=== PATIENT | female | born 1995 | race Two or more races ===

== ENCOUNTER 2024-03-07 01:52 | Inpatient (IN) | payer MEDICAID, OTHER ==
[~2024-03-07] VITALS: Ht 157.5 cm; Wt 75.6 kg
[2024-03-07 02:51] LABS: Urine Bacteria None Seen /hpf (None Seen)
[2024-03-07] MEDS: ONDANSETRON HCL 4 MG/2 ML VIAL IV ONE (02:51)
[2024-03-07] MEDS: FAMOTIDINE (10MG/ML) 2ML VL IV ONE (02:51)
[2024-03-07] MEDS: MORPHINE SULFATE 4 MG/ML SYR/VIAL IV ONE (02:52)
[2024-03-07] MEDS: SODIUM CHLORIDE 0.9% 1,000 ML IV ONE (02:52)
[2024-03-07 02:58] LABS: Basophils # (auto) 0 10 ^3/uL (0-0.2); Basophils % (auto) 0.4 % (0.0-2.0); Eosinophils # (auto) 0.1 10 ^3/uL (0-0.8); Eosinophils % (auto) 0.6 % (0.0-7.0); Hematocrit 37.1 % (36.0-46.0); Hemoglobin 12.4 g/dL (12.2-16.2); Lymphocytes # (auto) 1.8 10 ^3/uL (0.4-5.4); Lymphocytes % (auto) 15.9 % (10.0-50.0); Mean Corpuscular Hemoglobin 31.5 pg (28.0-32.0); Mean Corpuscular Hgb Conc. 33.4 g/dL (32.0-36.0); Mean Corpuscular Volume 94.1 fL (80.0-100.0); Monocytes # (auto) 0.5 10 ^3/uL (0-1.3); Monocytes % (auto) 4.3 % (0.0-12.0); Neutrophils # (auto) 8.9 10 ^3/uL (1.6-8.6); Neutrophils % (auto) 78.8 % (37.0-80.0); Platelet Count (auto) 273 10^3/uL (140-450); Red Blood Cells 3.95 10^6/uL (4.0-5.20); Red Cell Distribution Width 14.4 % (11.8-14.3); White Blood Cell 11.3 10^3/uL (4.4-10.8)
[2024-03-07 03:15] LABS: Alanine Aminotransferase 23 U/L (7-40); Alkaline Phosphatase 90 U/L (46-116); Anion Gap 8 (5-15); BUN/Creatinine Ratio 7.4 (10.0-20.0); Blood Urea Nitrogen 7 mg/dL (9-23); Calcium 9.7 mg/dL (8.7-10.4); Carbon Dioxide 25 mmol/L (20-30); Chloride 106 mmol/L (98-107); Glucose 143 mg/dL (74-106); Lipase 46 U/L (12-53); Sodium 139 mmol/L (136-145)
[2024-03-07 03:16] LABS: Albumin 4.3 g/dL (3.2-4.8); Aspartate Aminotransferase 14 U/L (13-40); Bilirubin, Total 1.3 mg/dL (0.2-1.0); Total Protein 7.5 g/dL (5.7-8.2)
[2024-03-07 03:34] LABS: Urine Amorphous Crystal MOD /hpf (None Seen); Urine Blood Negative /uL (Negative); Urine Clarity Ex.Turbid (Clear); Urine Color Colorless (Yellow); Urine Protein, UAD TRACE (Negative); Urine Specific Gravity 1.021 (1.001-1.035); Urine Urobilinogen Normal (Negative); Urine WBC 29 /hpf (0 - 5); Urine WBC Clumps PRESENT /hpf (None Seen); Urine pH 8.5 (5.0-9.0)
[2024-03-07] MEDS: cefTRIAXone 1GM/50ML D5W 50 ML IV ONE (04:43)
[2024-03-07] MEDS: IOHEXOL 300 MG/ML 100ML BOTTLE IJ ONE (06:16)
[2024-03-07] MEDS ORDERED: ONDANSETRON HCL 4 MG/2 ML VIAL IV PRN ×2 (06:30→15:15)
[2024-03-07] MEDS ORDERED: MORPHINE SULFATE INJ 2 MG/ml SYRG IV PRN ×3 (06:30→15:15)
[2024-03-07] MEDS: metroNIDAZOLE 500MG/100ML 100 ML IV ONE (06:37)
[2024-03-07] MEDS: SODIUM CHLORIDE 0.9% 1,000 ML IV SCH (06:37)
[2024-03-07 06:50] VITALS: O2SAT 98
[2024-03-07 07:50] LABS: INR 1.02 (0.9-1.15); Partial Thromboplastin Time 24.2 SEC (24.5-34.5); Prothrombin Time 10.8 sec (9.3-11.8)
[2024-03-07] MEDS: ceFAZolin 2 GM/D5W50ml 50 ML IV ONE (08:50)
[2024-03-07] MEDS: cefTRIAXone 1GM/50ML D5W 50 ML IV SCH (09:44)
[2024-03-07] MEDS: LIDOCAINE W/ EPINEPHRINE 1% 20ML VIAL ONE (13:25)
[2024-03-07] MEDS: BUPIVACAINE 0.25% INJ 50ML VIAL ONE (13:25)
[2024-03-07] MEDS ORDERED: HYDROmorphone HCL 2 MG/ML VL/or syr IV PRN (13:30)
[2024-03-07] MEDS ORDERED: fentaNYL CITRATE 100 MCG/2 ML VL IV PRN (13:30)
[2024-03-07] MEDS ORDERED: fentaNYL CITRATE 100 MCG/2 ML VL ONE (13:36)
[2024-03-07] MEDS ORDERED: MIDAZOLAM HCL 2MG/2ML 2ml VIAL (1mg/ml) ONE (13:36)
[2024-03-07] MEDS ORDERED: KETAMINE 50mg/ML 1ml syringe ONE (13:36)
[2024-03-07] MEDS ORDERED: NEOSTIGMINE 1 MG/ML INJ (10mg/10ML VIAL) ONE (13:37)
[2024-03-07] MEDS ORDERED: ONDANSETRON HCL 4 MG/2 ML VIAL ONE (13:37)
[2024-03-07] MEDS ORDERED: PROPOFOL 10 MG/ML 20 ML IV ONE (13:37)
[2024-03-07] MEDS ORDERED: LIDOCAINE 1% INJ PF 5ML AMP ONE (13:37)
[2024-03-07] MEDS ORDERED: GLYCOPYRROLATE 0.2 MG/ML 1ML VIAL ONE (13:37)
[2024-03-07] MEDS ORDERED: MEPERIDINE HCL (25 MG/ML) 1ML VIAL ONE (13:37)
[2024-03-07] MEDS ORDERED: SODIUM CHLORIDE LOCK 10 ML ONE (13:37)
[2024-03-07] MEDS ORDERED: ROCURONIUM 10MG/ML 10ML VIAL IV ONE (13:37)
[2024-03-07] MEDS: POVIDONE IODINE 10 % TOPICAL OINT 30GM TOP ONE (14:18)
[2024-03-07] MEDS: HYDROmorphone HCL 2 MG/ML VL/or syr IV ONE (14:30)
[2024-03-07 14:40] VITALS: RESP 15; O2SAT 97
[2024-03-07] MEDS: D5W/SOD CHL 0.45%/KCL 20MEQ 1,000 ML IV SCH (15:00)
[2024-03-07] MEDS ORDERED: IPRATROPIUM BROM 0.5 MG/2.5ML INH SOL NEB PRN (15:15)
[2024-03-07] MEDS ORDERED: ACETAMINOPHEN 500 MG TAB PO PRN (15:15)
[2024-03-07] MEDS ORDERED: ALBUTEROL SULF 2.5 MG/0.5ML(0.5%) NEB SOLN NEB PRN (15:15)
[2024-03-07] MEDS ORDERED: DOCUSATE SOD 100 MG CAP PO PRN (15:15)
[2024-03-07] MEDS: HYDROmorphone HCL 2 MG/ML VL/or syr IV PRN (15:36)
[2024-03-07 15:39] VITALS: BP 121/83; PULSE 91; RESP 18; TEMP 98.1; O2SAT 100
[2024-03-07] MEDS: metroNIDAZOLE 500MG/100ML 100 ML IV SCH (21:21)
[2024-03-07 21:45] VITALS: PULSE 106; RESP 17; O2SAT 92
[2024-03-07] MEDS: HYDROcodone-ACET 5/325MG TAB PO PRN (22:20)
[2024-03-08] VITALS (9 sets, daily range): BP systolic 109–131; BP diastolic 54–81; PULSE 57–120; RESP 16–20; TEMP 97.8–98.8; O2SAT 90–96
[2024-03-08 07:21] LABS: Basophils # (auto) 0 10 ^3/uL (0-0.2); Basophils % (auto) 0.5 % (0.0-2.0); Eosinophils # (auto) 0 10 ^3/uL (0-0.8); Eosinophils % (auto) 0.5 % (0.0-7.0); Hematocrit 35.4 % (36.0-46.0); Hemoglobin 11.9 g/dL (12.2-16.2); Lymphocytes # (auto) 2.2 10 ^3/uL (0.4-5.4); Lymphocytes % (auto) 22.4 % (10.0-50.0); Mean Corpuscular Hgb Conc. 33.7 g/dL (32.0-36.0); Mean Corpuscular Volume 94.9 fL (80.0-100.0); Monocytes # (auto) 0.7 10 ^3/uL (0-1.3); Monocytes % (auto) 7.4 % (0.0-12.0); Neutrophils # (auto) 6.9 10 ^3/uL (1.6-8.6); Neutrophils % (auto) 69.2 % (37.0-80.0); Platelet Count (auto) 241 10^3/uL (140-450); Red Blood Cells 3.73 10^6/uL (4.0-5.20); Red Cell Distribution Width 14.7 % (11.8-14.3); White Blood Cell 9.9 10^3/uL (4.4-10.8)
[2024-03-08 07:44] LABS: Alanine Aminotransferase 15 U/L (7-40); Alkaline Phosphatase 84 U/L (46-116); Anion Gap 5 (5-15); Calcium 8.9 mg/dL (8.7-10.4); Carbon Dioxide 28 mmol/L (20-30); Chloride 108 mmol/L (98-107); Glucose 103 mg/dL (74-106); Potassium 3.6 mmol/L (3.5-5.1); Sodium 141 mmol/L (136-145)
[2024-03-08 07:45] LABS: Albumin 3.7 g/dL (3.2-4.8); Aspartate Aminotransferase 13 U/L (13-40); Bilirubin, Total 1.8 mg/dL (0.2-1.0); Total Protein 6.3 g/dL (5.7-8.2)
[2024-03-08 07:46] LABS: BUN/Creatinine Ratio 6.2 (10.0-20.0); Blood Urea Nitrogen < 5 mg/dL (9-23)
[2024-03-08] MEDS: KETOROLAC TROMETH 30 MG/ML 1ML VIAL IV ONE (08:12)
[2024-03-08] MEDS: METOCLOPRAMIDE HCL 5MG/ml INJ 2ml VIAL IV ONE (08:12)
[2024-03-08] MEDS: PANTOPRAZOLE 40 MG/10 ML VIAL INJ IV SCH (10:39)
[2024-03-08] MEDS: D5W/SOD CHL 0.45%/KCL 20MEQ 1,000 ML IV SCH (13:15)
[2024-03-09] VITALS (7 sets, daily range): BP systolic 101–108; BP diastolic 64–70; PULSE 88–115; RESP 16–18; TEMP 98.4–98.6; O2SAT 93–100
[2024-03-09] MEDS ORDERED: TRAM50TA2 PO (09:59)
[2024-03-09] MEDS ORDERED: AMOX500T86 PO (09:59)
== END 2024-03-09 16:10 | disposition home or self-care (01) | DRG 234 ==
LOC: ER 01:52 → OVERFLOW 06:27 → CENTRAL 19:40
PROVIDERS: ADMIT Nurse Practitioner; ATTEND Nurse Practitioner Acute Care
PROC: 0DTJ4ZZ Resection of Appendix, Percutaneous Endoscopic Approach (ICD-10-PCS; principal; 2024-03-07 13:48)
DX: K35.80 Unspecified acute appendicitis (principal); R65.10 Systemic inflammatory response syndrome (SIRS) of non-infectious origin without acute organ dysfunction; E66.9 Obesity, unspecified; J45.909 Unspecified asthma, uncomplicated; Z68.30 Body mass index [BMI] 30.0-30.9, adult; Z79.899 Other long term (current) drug therapy
CPT/HCPCS: 36415; 74177; 80053; 81001; 81025; 83690; 85025; 85610; 85730; 86850; 86900; 86901; 87070; 87075; 87205; G0378; J2250; J2405; J2470; J2704; J3490